=== PATIENT | female | born 1950 | race Caucasian/White ===

== ENCOUNTER → 2017-03-29 | Outpatient (CLI) | payer MEDICARE, OTHER ==
[~2017-03-29] MED LIST: ASPIRIN81 M1 PO; CELEXA20 MG PO; CIPRO250 MG PO; DITROPAN XL5 MG PO; DYAZIDE 25 MG-31 CAP PO; ETODOLAC200 MG PO; HYDR25T PO; HYDROCODONE BIT1 T11 PO; INDOMETHACIN50 MG PO; LEXAPRO20 MG PO; LIPITOR20 MG PO; LODINE XL 400M400 MG PO; MULTIVITAMIN1 TA1 PO; NAPROSYN500 MG PO; NEXIUM40 MG PO; NORCO 5-325 TA1 EACH PO; NORVASC10 MG PO; PROTONIX40 MG PO; TRAZODONE100 MG PO; TYLENOL W/CODEI1 TA4 PO; TYLENOL WITH CO1 TA1 PO
== END ==
LOC: ORTHO 10:35
DX: M17.11 Unilateral primary osteoarthritis, right knee (principal); M25.761 Osteophyte, right knee; M21.161 Varus deformity, not elsewhere classified, right knee

== ENCOUNTER → 2017-06-24 | Outpatient (CLI) | payer MEDICARE, OTHER | END | disposition home or self-care (01) | LOC: CARD 14:43 | DX: R60.0 Localized edema (principal) ==

== ENCOUNTER 2017-07-20 11:56 | Inpatient (IN) | payer MEDICARE, OTHER ==
[~2017-07-20] VITALS: Ht 165.1 cm; Wt 103.4 kg
--- NOTE | ~2017-07-20 | PR ---
[place], [place] PROGRESS NOTE NAME: MARYLIN AMAYA UNIT #: [id number] ROOM: 506 DOCTOR: RAMIREZ MORALES MD BIRTHDATE: [birth year] DOS: 07/21/2017 REASON FOR VISIT: Chest pain, hypertension. SUBJECTIVE: The patient is feeling better. Denies any further chest pains, no shortness of breath. No PND, no orthopnea. REVIEW OF SYSTEMS: Review of the 8 systems negative except as mentioned above. PHYSICAL EXAMINATION: VITAL SIGNS: Blood pressure 112/54, pulse 50, respiration rate is 18. Rhythm strips, patient in sinus rhythm. GENERAL: Alert, comfortable, in no acute distress. HEENT: Pupils are round and equal. No jaundice. NECK: Supple, no distended neck veins, no carotid bruit. CHEST: Symmetrical, nontender. LUNGS: Clear to auscultation bilaterally. HEART: Regular rhythm, no S3. ABDOMEN: Nontender. Bowel sounds normal. EXTREMITIES: Showed no edema. Distal pulses palpable. No cyanosis, no clubbing. SKIN: Warm and dry. Medications and labs reviewed. IMPRESSION: 1. Chest pain, myocardial infarction ruled out. 2. Hypertension, stable. 3. Sinus bradycardia, asymptomatic. 4. Non-morbid obesity. RECOMMENDATIONS: 1. Lexiscan stress test today due to her chest pains and carotid artery disease risk factors. 2. test is unremarkable, she can be discharged home today. 3. Risk factor modification for diet, exercise, and weight loss was discussed. [place], [place] PROGRESS NOTE NAME: MARYLIN AMAYA UNIT #: [id number] ROOM: 506 DOCTOR: RAMIREZ MORALES MD BIRTHDATE: [birth year] RAMIREZ MORALES MD CM:PNTRANS [id number] RAMIREZ MORALES MD 07/22/17 1006 interface
--- NOTE | ~2017-07-20 | CON ---
[place], [place] REPORT OF CONSULTATION NAME: MARYLIN AMAYA [facility] #: [id number] UNIT #: [id number] ROOM: 506 DOCTOR: RAMIREZ MORALES MD BIRTHDATE: [birth year] DOS: 07/20/2017 REASON FOR CONSULTATION: Chest pain. HISTORY OF PRESENT ILLNESS: The patient, a 67-year-old patient with history of hypertension, back pain, knee pain, non-morbid obesity, presents to Emergency Room for chest pain. She describes this pain as a dull pain in the midsternal area. No radiation. No associated nausea, diaphoresis, or shortness of breath. Apparently, she woke up with this pain and the pain is intermittent and lasts for a few seconds to several minutes and it returns. Again, the next day, the patient noted to have these intermittent chest pains and subsequently presented to the hospital and was admitted. She was also complaining of some lower extremity edema and recently was started on Bumex. She had a stress test over 2 years ago. The patient complaining of some mild exertional dyspnea, but no PND, no orthopnea. No nausea, vomiting, diarrhea. No fever and chills. No palpitations. No dizziness or syncope. No neurologic symptoms. The patient did have some chronic low back pain as well as bilateral knee pains. REVIEW OF SYSTEMS: Review of the 10 systems negative except as mentioned above. PAST MEDICAL HISTORY: 1. Hypertension. 2. Non-morbid obesity. 3. Edema. 4. Acid reflux. 5. Dyslipidemia. 6. History of spinal stenosis. 7. Arthritis of the both knees. PAST SURGICAL HISTORY: History of cholecystectomy, left knee surgery, tubal ligation. SOCIAL HISTORY: Does not smoke or drink, does not use illicit drugs. FAMILY HISTORY: Father at the age of 60s from heart disease. Mother in her 60s from lung cancer. Brother had a myocardial infarction at a younger age. ALLERGIES: The patient's allergies have been reviewed. MEDICATIONS: Have been reviewed. PHYSICAL EXAMINATION: VITAL SIGNS: Blood pressure 145/79, pulse 58, respiration rate is 20. Weight 103 kilos with BMI 37.9. REVIEW OF THE LABS AND IMAGING STUDIES: Her labs and imaging studies reviewed. Chest x-ray showed cardiomegaly with normal cardiac enzymes and creatinine 0.9. IMPRESSION: [place], [place] REPORT OF CONSULTATION NAME: MARYLIN AMAYA UNIT #: [id number] ROOM: 506 DOCTOR: ANDREW CARD,RAMIREZ BIRTHDATE: [birth year] 1. Chest pain, appears to be atypical, myocardial infarction ruled out. 2. Mild shortness of breath. 3. Mild lower extremity edema. 4. Non-morbid obesity. 5. Chronic low back pain and knee pains. 6. Mild mitral regurgitation by echo. 7. Hypertension. RECOMMENDATIONS: 1. Her echo from June 2017 reviewed with normal LV function. 2. EKG showed normal sinus rhythm with no acute ST-T changes. 3. Stress test from May 2015 reviewed. 4. Apparently, the patient had cardiac catheterization, showed no significant blockages. We will review the records from [facility]. 5. Continue current medications. 6. Lexiscan stress test tomorrow. 7. Risk factor modification for diet, exercise, and weight loss was discussed. 8. Further recommendation based on her symptoms and her tests. 9. The above treatment plan was discussed with the patient and her family member who is at bedside. RAMIREZ MORALES MD CM:CONSTR:REPORT OF CONSULTATION 0620 07/21/17 1052 interface
--- NOTE | ~2017-07-20 | ST ---
[place], [place] EXERCISE STRESS TEST REPORT NAME: MARYLIN AMAYA [facility] #: [id number] UNIT #: [id number] ROOM: 506 DOCTOR: ANDREW CARD,RAMIREZ BIRTHDATE: [birth year] DOS: 07/21/2017 REASON FOR TEST: Chest pain. PHYSICAL EXAMINATION NECK: Supple. LUNGS: Clear anteriorly. HEART: Regular rhythm. PROTOCOL: Lexiscan protocol. Maximum heart rate 80. Peak blood pressure 116/70. SYMPTOMS: The patient was chest pain free. ELECTROCARDIOGRAM: Resting EKG showed sinus rhythm. Stress EKG showed no ischemia, no arrhythmias. CONCLUSION: Clinically, the patient is chest pain free and EKG showed no ischemia. The patient received a total of 0.4 mg Lexiscan. RAMIREZ MORALES MD CM:STRESS:EXERCISE STRESS TEST REPORT [id number] RAMIREZ MORALES MD
[2017-07-20 12:02] VITALS: BP 160/74
[2017-07-20] MEDS ORDERED: PROTONIX40 MG PO (12:13)
[2017-07-20] MEDS ORDERED: VISTARIL25 MG PO (12:14)
[2017-07-20] MEDS ORDERED: TRIAMTERENE & H1 CA1 PO ×2 (12:14→15:02)
[2017-07-20] MEDS ORDERED: BUMETANIDE0.5 MG PO (12:15)
[2017-07-20] MEDS ORDERED: POTASSIUM99 M5 PO (12:16)
[2017-07-20 12:33] LABS: BASO % 0.5 % (0.0-1.0); EOS # 0.1 10*3/uL (0.0-0.4); EOS % 1.8 % (1.0-4.0); HEMATOCRIT 40.9 % (37.0-47.0); HEMOGLOBIN 13.1 g/dl (12.0-16.0); LYMPH # 1.3 10*3/uL (1.3-4.4); LYMPH % 19.5 % (27.0-41.0); MEAN CELL VOLUME 90.1 fl (81.0-99.0); MEAN CORPUSCULAR HGB 28.9 pg (27.0-31.0); MEAN PLATELET VOLUME 10.4 fl (9.6-12.3); MONO # 0.5 10*3/uL (0.1-1.0); MONO % 7.8 % (3.0-9.0); NEUT # 4.6 10*3/uL (2.3-7.9); NEUT % 70.1 % (47.0-73.0); PLATELET COUNT AUTOMATED 226 10*3/uL (130-400); RED BLOOD COUNT 4.54 10*6/uL (4.10-5.10); WHITE BLOOD COUNT 6.6 10*3/uL (4.8-10.8)
[2017-07-20 12:50] LABS: ALBUMIN 3.4 gm/dl (3.1-4.5); ALKALINE PHOSPHATASE 83 U/L (45-117); BUN 12 mg/dl (7-24); CHLORIDE 106 mmol/L (98-107); CREATININE 0.91 mg/dL (0.55-1.02); POTASSIUM 3.5 mmol/L (3.5-5.1); SGOT/AST 19 IU/L (3-35); SGPT/ALT 17 U/L (12-78); SODIUM 141 mmol/L (136-145); TOTAL PROTEIN 7.3 gm/dL (6.4-8.2)
[2017-07-20 12:51] LABS: TROPONIN I < 0.015 ng/ml (<0.045)
[2017-07-20 14:37] VITALS: BP 145/79
[2017-07-20] MEDS ORDERED: BUMETANIDE2 MG PO (15:00)
[2017-07-20 16:00] VITALS: BP 132/57
[2017-07-20 20:00] VITALS: BP 107/82
[2017-07-21 05:52] LABS: BASO % 0.3 % (0.0-1.0); EOS # 0.2 10*3/uL (0.0-0.4); EOS % 4.1 % (1.0-4.0); HEMATOCRIT 38.6 % (37.0-47.0); HEMOGLOBIN 12.5 g/dl (12.0-16.0); LYMPH # 2.2 10*3/uL (1.3-4.4); MEAN CELL VOLUME 89.4 fl (81.0-99.0); MEAN CORPUSCULAR HGB 28.9 pg (27.0-31.0); MEAN CORPUSCULAR HGB CONC 32.4 g/dl (33.0-37.0); MEAN PLATELET VOLUME 10.7 fl (9.6-12.3); MONO # 0.6 10*3/uL (0.1-1.0); MONO % 10.5 % (3.0-9.0); NEUT # 2.8 10*3/uL (2.3-7.9); NEUT % 47.9 % (47.0-73.0); PLATELET COUNT AUTOMATED 205 10*3/uL (130-400); RED BLOOD COUNT 4.32 10*6/uL (4.10-5.10); RED CELL DISTRI WIDTH 13.2 % (0-14.5); WHITE BLOOD COUNT 5.8 10*3/uL (4.8-10.8)
[2017-07-21 06:18] LABS: BUN 15 mg/dl (7-24); CHLORIDE 102 mmol/L (98-107); CHOLESTEROL 146 mg/dL (<200); CREATININE 0.91 mg/dL (0.55-1.02); PHOSPHOROUS 3.2 mg/dL (2.5-4.9); POTASSIUM 3.1 mmol/L (3.5-5.1); SODIUM 140 mmol/L (136-145); TRIGLYCERIDES 125 mg/dl (<150); VLDL CHOLESTEROL 25 mg/dL (6-40)
[2017-07-21 06:36] LABS: HDL CHOLESTEROL 46 mg/dl (40-60); LDL CHOLESTEROL 75 mg/dL (9-159)
[2017-07-21 08:00] VITALS: BP 126/62
[2017-07-21 08:48] LABS: VITAMIN D, 25-HYDROXY 37.5 ng/mL (30-100)
[2017-07-21] MEDS ORDERED: KLOR-CON 1010 ME1 PO (09:46)
[2017-07-21] MEDS ORDERED: BUMETANIDE1 MG PO (09:46)
[2017-07-21] MEDS ORDERED: TRAZODONE150 MG PO (09:53)
[2017-07-21] MEDS ORDERED: VITAMIN D31000 UNI1 PO (10:28)
[2017-07-21 16:00] VITALS: BP 114/63
== END 2017-07-21 17:33 | disposition home or self-care (01) | DRG 313 ==
LOC: ED 11:56 → 5E 13:37 → EDHOLD 13:37 → 5E 13:47
PROVIDERS: Physician Assistant; Student in an Organized Health Care Education/Training Program
PROC: 3E073KZ Introduction of Other Diagnostic Substance into Coronary Artery, Percutaneous Approach (ICD-10-PCS; principal; 2017-07-21)
PROC: 4A02XM4 Measurement of Cardiac Total Activity, External Approach (ICD-10-PCS; principal; 2017-07-21)
DX: R07.89 Other chest pain (principal); E66.01 Morbid (severe) obesity due to excess calories; I11.9 Hypertensive heart disease without heart failure; K21.9 Gastro-esophageal reflux disease without esophagitis; N32.81 Overactive bladder; M54.9 Dorsalgia, unspecified; G89.29 Other chronic pain; E78.5 Hyperlipidemia, unspecified; D72.810 Lymphocytopenia; M48.00 Spinal stenosis, site unspecified; R73.9 Hyperglycemia, unspecified; R00.1 Bradycardia, unspecified; M17.0 Bilateral primary osteoarthritis of knee; I34.0 Nonrheumatic mitral (valve) insufficiency; Z79.82 Long term (current) use of aspirin; Z79.899 Other long term (current) drug therapy; Z90.49 Acquired absence of other specified parts of digestive tract; Z98.51 Tubal ligation status; Z82.49 Family history of ischemic heart disease and other diseases of the circulatory system; Z80.1 Family history of malignant neoplasm of trachea, bronchus and lung; Z82.3 Family history of stroke; Z68.36 Body mass index [BMI] 36.0-36.9, adult

== ENCOUNTER → 2017-09-03 | Day surgery (SDC) | payer MEDICARE, OTHER ==
[~2017-09-03] VITALS: Ht 162.5 cm; Wt 99.8 kg
[~2017-09-03] MED LIST changes: +BUMETANIDE0.5 MG PO; +BUMETANIDE1 MG PO; +BUMETANIDE2 MG PO; +KLOR-CON 1010 ME1 PO; +POTASSIUM99 M5 PO; +TRAZODONE150 MG PO; +TRIAMTERENE & H1 CA1 PO; +VISTARIL25 MG PO; +VITAMIN D31000 UNI1 PO
--- NOTE | ~2017-09-03 | O ---
[place], [place] OPERATIVE NOTE NAME: MARYLIN AMAYA UNIT #: [id number] ROOM: DOCTOR: DORITA MAHMOOD MD BIRTHDATE: [birth year] DOS: 09/03/2017 GASTROENDOSCOPIC REPORT INDICATIONS: This is a 67-year-old patient who presented for colonic screening. Meanwhile, chronic use of PPI for years, on Protonix. ALLERGIES: No known medication. FAMILY HISTORY: Noncontributory. PAST SURGICAL HISTORY: Cholecystectomy and left knee. PAST MEDICAL HISTORY: Incontinence, obesity, hyperlipidemia, and anxiety. SOCIAL HISTORY: Nonsmoker, nonalcohol consumer. PROCEDURE: Today's procedure part of investigation is panendoscopy and colonoscopy. PREMEDICATION: Propofol. SCOPE: Olympus forward-viewing gastroscope Q10 video. REPORT: After putting the patient in left lateral position and application of lubricant to the scope, the scope was introduced. Thereafter, under direct visualization, advanced through the length of esophagus without difficulty. Distal esophagitis was noticed. Gastric pouch was entered. Gastritis seen. Antral biopsy obtained. Duodenal bulb, second and third part within normal limits. Scope was gradually withdrawn after antral biopsy. The patient extubated, and tolerated the procedure well. IMPRESSION: Distal esophagitis, gastritis. PLAN AND DISCUSSION: I am going to proceed with colonoscopy. GASTROENDOSCOPIC REPORT. INDICATIONS: The patient has presented for colonic screening. PROCEDURE: Today's procedure part of investigation is colonoscopy. PREMEDICATION: Propofol. SCOPE: Olympus forward-viewing colonoscope 10L video. REPORT: After putting the patient in left lateral position and application of lubricant to the scope, the scope was introduced. Thereafter, under direct visualization, I advanced through the length of colon with some difficulty. [place], [place] OPERATIVE NOTE NAME: MARYLIN AMAYA UNIT #: [id number] ROOM: DOCTOR: DORITA MAHMOOD MD BIRTHDATE: [birth year] Difficulty being semi-liquid stool flowing at the transverse colon and ascending colon, large volume. Detailed visualization of the ascending colon becomes impractical due to retained stool; however, in the left colon, diverticulosis was noticed. Air was suctioned out. The patient was extubated, and tolerated the procedure well. IMPRESSION: Diverticulosis and retained liquid stool in the right colon. PLAN AND DISCUSSION: Since this is a colonic screening, I am going to recommend her to have a repeat colonoscopy. If she does not, I agree. Then, I would recommend re-colonoscopy in a year to be definitely performed. Thank you again for your kind referral. DORITA MAHMOOD MD CM:OPRECORD:OPERATIVE NOTE [id number] DORITA MAHMOOD MD 09/07/17 1440 interface
[2017-09-03 11:51] VITALS: BP 98/61
[2017-09-03 12:24] VITALS: BP 91/46
[2017-09-03 12:40] VITALS: BP 103/44
[2017-09-03 12:54] VITALS: BP 104/54
== END | disposition home or self-care (01) ==
LOC: SDC 08-30 11:00
DX: Z12.11 Encounter for screening for malignant neoplasm of colon (principal); K29.50 Unspecified chronic gastritis without bleeding; K20.8 Other esophagitis; K57.30 Diverticulosis of large intestine without perforation or abscess without bleeding; K21.9 Gastro-esophageal reflux disease without esophagitis; K56.41 Fecal impaction; E78.5 Hyperlipidemia, unspecified; M19.90 Unspecified osteoarthritis, unspecified site; F41.9 Anxiety disorder, unspecified; E66.09 Other obesity due to excess calories; Z90.49 Acquired absence of other specified parts of digestive tract; Z98.890 Other specified postprocedural states; Z96.652 Presence of left artificial knee joint; Z79.899 Other long term (current) drug therapy; Z68.37 Body mass index [BMI] 37.0-37.9, adult
CPT/HCPCS: 00813; 43239; G0121

== ENCOUNTER 2017-09-28 13:10 | Emergency (ER) | payer MEDICARE, OTHER ==
[~2017-09-28] VITALS: Ht 165.1 cm; Wt 99.8 kg
[2017-09-28 13:11] VITALS: BP 126/62
== END 2017-09-28 15:45 | disposition home or self-care (01) ==
LOC: ED 13:10
DX: G89.29 Other chronic pain (principal); I10 Essential (primary) hypertension; K21.9 Gastro-esophageal reflux disease without esophagitis; M19.90 Unspecified osteoarthritis, unspecified site; E78.5 Hyperlipidemia, unspecified; E66.01 Morbid (severe) obesity due to excess calories; M48.00 Spinal stenosis, site unspecified; Z90.49 Acquired absence of other specified parts of digestive tract; Z98.51 Tubal ligation status; Z98.890 Other specified postprocedural states; Z79.899 Other long term (current) drug therapy; Z79.82 Long term (current) use of aspirin

== ENCOUNTER → 2017-11-26 | Outpatient (CLI) | payer MEDICARE, OTHER | END | disposition home or self-care (01) | LOC: CT 09:45 | DX: M17.11 Unilateral primary osteoarthritis, right knee (principal) ==

== ENCOUNTER → 2018-01-10 | Outpatient (CLI) | payer MEDICARE, OTHER ==
--- NOTE | ~2018-01-10 | EKG ---
[place], [place] ELECTROCARDIOGRAM REPORT NAME: GABRIELLE AMAYA UNIT #: [id number] ROOM: DOCTOR: ANGELI DRAFT REPORT BIRTHDATE: [birth year] [facility] Test Date: 2018-01-10 Test Time: 09:35:53 Pat Name: GABRIELLE AMAYA Department: Room: Gender: F [employer] Officer: Gabrielle Castillo : 1950 Requested By: ARIES RIVERO Order Number: [id number] Reading MD: José Miguel Multani MD Measurements Intervals [place] Rate: 52 P: 46 AL: 139 QRS: 0 QRSD: 103 T: 8 QT: 441 QTc: 411 Interpretive Statements Sinus rhythm Low voltage, precordial leads Electronically Signed On 01-12-2018 11:56:34 PDT by José Miguel Multani MD CM:EKGRPT:ELECTROCARDIOGRAM REPORT [id number] ARIES CARROLL DRAFT REPORT ARIES RIVERO DO
[2018-01-10 10:02] LABS: BILIRUBIN 1+ (NEGATIVE); BLOOD 1+ (NEGATIVE); CLARITY CLOUDY (CLEAR); COLOR YELLOW (YELLOW); GLUCOSE NEGATIVE (NEGATIVE); KETONE TRACE (NEGATIVE); LEUKO ESTERASE TRACE (NEGATIVE); NITRITE NEGATIVE (NEGATIVE); PH 5.5 (5.0-9.0); SPECIFIC GRAVITY >= 1.030 (1.005-1.030)
[2018-01-10 10:10] LABS: BASO % 0.5 % (0.0-1.0); EOS # 0.2 10*3/uL (0.0-0.4); EOS % 2.9 % (1.0-4.0); HEMATOCRIT 40.5 % (37.0-47.0); LYMPH # 1.1 10*3/uL (1.3-4.4); LYMPH % 19.6 % (27.0-41.0); MEAN CELL VOLUME 90.6 fl (81.0-99.0); MEAN CORPUSCULAR HGB 29.1 pg (27.0-31.0); MEAN CORPUSCULAR HGB CONC 32.1 g/dl (33.0-37.0); MEAN PLATELET VOLUME 10.3 fl (9.6-12.3); MONO # 0.4 10*3/uL (0.1-1.0); MONO % 7.4 % (3.0-9.0); NEUT # 3.9 10*3/uL (2.3-7.9); NEUT % 69.4 % (47.0-73.0); PLATELET COUNT AUTOMATED 229 10*3/uL (130-400); RED BLOOD COUNT 4.47 10*6/uL (4.10-5.10); RED CELL DISTRI WIDTH 13.7 % (0-14.5); WHITE BLOOD COUNT 5.6 10*3/uL (4.8-10.8)
[2018-01-10 10:43] LABS: ACT PARTIAL THROMBO TIME 24.9 SECONDS (20.8-31.5); INTERNATIONAL NORM RATIO 1.1 (2.0-3.5)
[2018-01-10 10:46] LABS: ALBUMIN 3.6 gm/dl (3.1-4.5); ALKALINE PHOSPHATASE 78 U/L (45-117); BUN 18 mg/dl (7-24); CHLORIDE 104 mmol/L (98-107); CREATININE 0.93 mg/dL (0.55-1.02); POTASSIUM 4.3 mmol/L (3.5-5.1); SGOT/AST 16 IU/L (3-35); SGPT/ALT 17 U/L (12-78); SODIUM 140 mmol/L (136-145); TOTAL PROTEIN 7.3 gm/dL (6.4-8.2)
[2018-01-10 11:43] LABS: BACTERIA 1+; MUCOUS 1+; WBC 31-40 wbc/hpf (0-5)
== END | disposition home or self-care (01) ==
LOC: LAB 09:22
PROVIDERS: Orthopaedic Surgery
DX: Z01.818 Encounter for other preprocedural examination (principal); R91.8 Other nonspecific abnormal finding of lung field; M19.90 Unspecified osteoarthritis, unspecified site; M79.609 Pain in unspecified limb; M79.89 Other specified soft tissue disorders; Z79.899 Other long term (current) drug therapy

== ENCOUNTER → 2018-01-21 | Outpatient (CLI) | payer MEDICARE, OTHER ==
[2018-01-21 10:05] LABS: BILIRUBIN NEGATIVE (NEGATIVE); BLOOD TRACE-INTACT (NEGATIVE); CLARITY CLOUDY (CLEAR); COLOR YELLOW (YELLOW); GLUCOSE NEGATIVE (NEGATIVE); KETONE NEGATIVE (NEGATIVE); LEUKO ESTERASE NEGATIVE (NEGATIVE); NITRITE NEGATIVE (NEGATIVE); SPECIFIC GRAVITY >= 1.030 (1.005-1.030); UROBILINOGEN 0.2 E.U./dl (0.2-1.0)
[2018-01-21 12:43] LABS: BACTERIA 1+; EPITHELIAL CELLS 15-20; MUCOUS 1+; URIC ACID CRYSTALS 1+
== END | disposition home or self-care (01) ==
LOC: LAB 09:35
PROVIDERS: Orthopaedic Surgery
DX: N39.0 Urinary tract infection, site not specified (principal)

== ENCOUNTER → 2019-01-06 | Day surgery (SDC) | payer MEDICARE, OTHER ==
[~2019-01-06] VITALS: Ht 165.1 cm; Wt 95.3 kg
[~2019-01-06] MED LIST changes: +IBU800 M1 PO; +PROPRANOLOL HCL60 MG PO
--- NOTE | ~2019-01-06 | O ---
[place], [place] OPERATIVE NOTE NAME: MARYLIN AMAYA UNIT #: [id number] ROOM: DOCTOR: DORITA MAHMOOD MD BIRTHDATE: [birth year] DOS: 01/06/2019 GASTROENDOSCOPIC REPORT INDICATION: This is 68-year-old patient who has presented with guaiac positivity on ibuprofen and change in bowel habit, undergoing investigation. ALLERGIES: BACTRIM. FAMILY HISTORY: Noncontributory. PAST SURGICAL HISTORY: Cardiac and bilateral knee prosthesis. PAST MEDICAL HISTORY: Hyperlipidemia, anxiety and depression. PROCEDURE #1: PROCEDURE: Today's procedure part of investigation is panendoscopy plus biopsies and colonoscopy. PREMEDICATION: Propofol. SCOPE: Olympus forward-viewing gastroscope Q10 video. DESCRIPTION OF PROCEDURE: After putting the patient in left lateral position and application of lubricant to the scope, scope was introduced. Thereafter, under direct visualization, advanced through the length of esophagus without difficulty. Distal esophagitis was identified. Gastric pouch was entered. Multigastric erosions, particularly at antral ____ was noticed. Antral biopsy obtained. Photographic series obtained. Duodenal bulb, seconds and third parts within normal limits. The patient extubated, tolerated the procedure well. IMPRESSION: Multigastric erosions, distal esophagitis, status post antral biopsy and photographic series. Etiology of gastric erosions are ibuprofen and multi other medication she is taking. FINAL DIAGNOSES: Multiple gastric erosions and distal esophagitis. PLAN AND DISCUSSION: She is going to remain on Protonix. We are going to remove the ibuprofen at the present time. Intake of ibuprofen has to be p.r.n. when she feels absolute necessity along with the Gaviscon Extra Strength 1 tablet p.r.n. and clinical reassessment. We are going to proceed with colonoscopic evaluation. Thank you very much indeed for your kind referral. PROCEDURE #2: INDICATION: The patient has presented with a chief complaint of change in bowel [place], [place] OPERATIVE NOTE NAME: MARYLIN AMAYA UNIT #: [id number] ROOM: DOCTOR: DORITA MAHMOOD MD BIRTHDATE: [birth year] habit, undergoing investigation. PROCEDURE: Today's procedure part of investigation is colonoscopy. PREMEDICATION: Propofol. SCOPE: Olympus forward-viewing colonoscope 10L video. DESCRIPTION OF PROCEDURE: After putting the patient in left lateral position and application of lubricant to the scope, scope was introduced. Thereafter, under direct visualization, advanced through the length of colon without difficulty. [id number]-ji-[id number] diverticulosis was noticed. Base of the cecum explored, appendiceal orifice identified, ileocecal valve was defined. Scope was gradually withdrawn from ascending, transverse, descending colon. Most of the diverticula in the descending colon. Air was suctioned out. The patient was extubated, tolerated the procedure well. IMPRESSION: Wgpbqagr-[id number] diverticulosis, particularly of the left colon. PLAN AND DISCUSSION: High fiber diet. ACTIVITY: Ad geovanni. FOLLOWUP: Routinely with you in office, p.r.n. visit. Thank you very much indeed for your kind referral. DORITA MAHMOOD MD CM:OPRECORD:OPERATIVE NOTE [id number] DORITA MAHMOOD MD 01/06/19 1538 interface
[2019-01-06 10:44] VITALS: BP 114/55
[2019-01-06 12:16] VITALS: BP 115/47
[2019-01-06 12:24] VITALS: BP 109/59
[2019-01-06 12:44] VITALS: BP 130/67
== END | disposition home or self-care (01) ==
LOC: SDC 01-03 10:15
DX: K92.1 Melena (principal); K29.50 Unspecified chronic gastritis without bleeding; K57.30 Diverticulosis of large intestine without perforation or abscess without bleeding; F41.9 Anxiety disorder, unspecified; E78.5 Hyperlipidemia, unspecified; F32.9 Major depressive disorder, single episode, unspecified; K21.9 Gastro-esophageal reflux disease without esophagitis; E66.9 Obesity, unspecified; Z68.34 Body mass index [BMI] 34.0-34.9, adult; Z98.51 Tubal ligation status; Z90.49 Acquired absence of other specified parts of digestive tract; Z98.890 Other specified postprocedural states; Z79.899 Other long term (current) drug therapy; Z88.8 Allergy status to other drugs, medicaments and biological substances; Z80.8 Family history of malignant neoplasm of other organs or systems; Z82.49 Family history of ischemic heart disease and other diseases of the circulatory system

== ENCOUNTER 2019-04-01 15:39 | Emergency (ER) | payer OTHER, MEDICARE ==
[~2019-04-01] VITALS: Ht 165.1 cm; Wt 95.3 kg
[2019-04-01 15:44] VITALS: BP 156/56
== END 2019-04-01 18:49 | disposition home or self-care (01) ==
LOC: ED 15:39
DX: S80.02XA Contusion of left knee, initial encounter (principal); S80.01XA Contusion of right knee, initial encounter; I10 Essential (primary) hypertension; K21.9 Gastro-esophageal reflux disease without esophagitis; E66.01 Morbid (severe) obesity due to excess calories; M19.90 Unspecified osteoarthritis, unspecified site; E78.5 Hyperlipidemia, unspecified; Z88.2 Allergy status to sulfonamides; Z79.899 Other long term (current) drug therapy; V89.2XXA Person injured in unspecified motor-vehicle accident, traffic, initial encounter; Y93.89 Activity, other specified; Y92.89 Other specified places as the place of occurrence of the external cause; Y99.8 Other external cause status

== ENCOUNTER → 2020-01-01 | Outpatient (CLI) | payer OTHER | END | disposition home or self-care (01) | LOC: RAD 10:25 | PROVIDERS: ATTEND Pain Medicine Interventional Pain Medicine | DX: S33.39XA Dislocation of other parts of lumbar spine and pelvis, initial encounter (principal); X58.XXXA Exposure to other specified factors, initial encounter; M47.816 Spondylosis without myelopathy or radiculopathy, lumbar region; I87.8 Other specified disorders of veins; Y93.89 Activity, other specified; Y92.89 Other specified places as the place of occurrence of the external cause; Y99.8 Other external cause status ==

== ENCOUNTER → 2020-01-24 | Outpatient (CLI) | payer OTHER | END | disposition home or self-care (01) | LOC: MRI 13:00 | PROVIDERS: ATTEND Pain Medicine Interventional Pain Medicine | DX: M51.27 Other intervertebral disc displacement, lumbosacral region (principal); M62.81 Muscle weakness (generalized); M48.061 Spinal stenosis, lumbar region without neurogenic claudication; M41.86 Other forms of scoliosis, lumbar region; M43.16 Spondylolisthesis, lumbar region ==

== ENCOUNTER → 2020-05-29 | Outpatient (CLI) | payer OTHER, MEDICAID | END | disposition home or self-care (01) | LOC: MAMMO 05-27 10:30 | PROVIDERS: ATTEND Preventive Medicine Occupational Medicine | DX: Z12.31 Encounter for screening mammogram for malignant neoplasm of breast (principal) ==

== ENCOUNTER 2020-08-02 10:58 | Emergency (ER) | payer OTHER ==
[~2020-08-02] VITALS: Ht 165.1 cm; Wt 107.0 kg
[2020-08-02 11:33] LABS: BASO % 0.3 % (0.0-1.0); EOS # 0.1 10*3/uL (0.0-0.4); EOS % 0.8 % (1.0-4.0); HEMATOCRIT 41.9 % (37.0-47.0); LYMPH # 1.2 10*3/uL (1.3-4.4); MEAN CELL VOLUME 89.9 fl (81.0-99.0); MEAN CORPUSCULAR HGB CONC 32.2 g/dl (33.0-37.0); MEAN PLATELET VOLUME 9.8 fl (9.6-12.3); MONO # 0.5 10*3/uL (0.1-1.0); MONO % 7.9 % (3.0-9.0); NEUT # 4.4 10*3/uL (2.3-7.9); NEUT % 71.7 % (47.0-73.0); PLATELET COUNT AUTOMATED 240 10*3/uL (130-400); RED BLOOD COUNT 4.66 10*6/uL (4.10-5.10); RED CELL DISTRI WIDTH 13.6 % (0-14.5); WHITE BLOOD COUNT 6.1 10*3/uL (4.8-10.8)
[2020-08-02 11:47] LABS: ALBUMIN 3.4 gm/dl (3.1-4.5); ALKALINE PHOSPHATASE 73 U/L (45-117); BUN 10 mg/dl (7-24); CHLORIDE 105 mmol/L (98-107); CREATININE 0.83 mg/dL (0.55-1.02); LIPASE 138 U/L (73-393); POTASSIUM 3.8 mmol/L (3.5-5.1); SGOT/AST 15 IU/L (3-35); SGPT/ALT 17 U/L (12-78); SODIUM 135 mmol/L (136-145); TOTAL PROTEIN 6.8 gm/dL (6.4-8.2)
[2020-08-02 12:53] LABS: BILIRUBIN Negative (Negative); BLOOD 1+ (Negative); CLARITY Clear (Clear); COLOR Yellow (Yellow); GLUCOSE Negative (Negative); KETONE Negative (Negative); LEUKO ESTERASE Negative (Negative); NITRITE Negative (Negative); UROBILINOGEN 0.2 E.U./dl (0.0-1.0)
[2020-08-02 13:00] LABS: BACTERIA TRACE; WBC 0-2 wbc/hpf (0-5); YEAST 1+
[2020-08-02 15:09] VITALS: BP 124/53
== END 2020-08-02 16:24 | disposition home or self-care (01) ==
LOC: ED 10:58
PROVIDERS: Physician Assistant
DX: R19.7 Diarrhea, unspecified (principal); Z88.8 Allergy status to other drugs, medicaments and biological substances; Z88.2 Allergy status to sulfonamides; Z79.899 Other long term (current) drug therapy; Z98.890 Other specified postprocedural states; Z90.49 Acquired absence of other specified parts of digestive tract; Z95.818 Presence of other cardiac implants and grafts; Z98.51 Tubal ligation status; Z96.652 Presence of left artificial knee joint

== ENCOUNTER → 2020-08-22 | Outpatient (CLI) | payer OTHER | END | disposition home or self-care (01) | LOC: RAD 12:06 | PROVIDERS: ATTEND Preventive Medicine Occupational Medicine | DX: M51.37 Other intervertebral disc degeneration, lumbosacral region (principal) ==

== ENCOUNTER → 2020-09-23 | Outpatient (CLI) | payer OTHER | END | disposition home or self-care (01) | LOC: MRI 12:51 | PROVIDERS: ATTEND Student in an Organized Health Care Education/Training Program | DX: M43.16 Spondylolisthesis, lumbar region (principal); M48.061 Spinal stenosis, lumbar region without neurogenic claudication; M50.31 Other cervical disc degeneration, high cervical region; M51.37 Other intervertebral disc degeneration, lumbosacral region; M48.02 Spinal stenosis, cervical region; M48.07 Spinal stenosis, lumbosacral region; M25.78 Osteophyte, vertebrae; M89.38 Hypertrophy of bone, other site ==

== ENCOUNTER → 2021-01-23 | Outpatient (CLI) | payer OTHER | END | disposition home or self-care (01) | LOC: RAD 14:59 | PROVIDERS: ATTEND Preventive Medicine Occupational Medicine | DX: S22.000A Wedge compression fracture of unspecified thoracic vertebra, initial encounter for closed fracture (principal); M25.78 Osteophyte, vertebrae; X58.XXXA Exposure to other specified factors, initial encounter; Y93.89 Activity, other specified; Y92.89 Other specified places as the place of occurrence of the external cause; Y99.8 Other external cause status ==

== ENCOUNTER → 2021-04-29 | Outpatient (CLI) | payer OTHER | END | disposition home or self-care (01) | LOC: US 04-25 10:30 | PROVIDERS: ATTEND Preventive Medicine Occupational Medicine | DX: L03.115 Cellulitis of right lower limb (principal); L04.9 Acute lymphadenitis, unspecified; R60.0 Localized edema ==

== ENCOUNTER → 2021-06-12 | Outpatient (CLI) | payer OTHER | END | disposition home or self-care (01) | LOC: CARD 01:05 | PROVIDERS: ATTEND Preventive Medicine Occupational Medicine | DX: R60.0 Localized edema (principal) ==

== ENCOUNTER → 2022-02-23 | Outpatient (CLI) | payer OTHER | END | disposition home or self-care (01) | LOC: MAMMO 01-21 08:30 | PROVIDERS: ATTEND Nurse Practitioner Primary Care | DX: Z12.31 Encounter for screening mammogram for malignant neoplasm of breast (principal) ==

== ENCOUNTER → 2022-05-29 | Outpatient (CLI) | payer OTHER | END | disposition home or self-care (01) | LOC: US 05-11 00:49 | PROVIDERS: ATTEND Nurse Practitioner Primary Care | DX: I73.9 Peripheral vascular disease, unspecified (principal); R60.0 Localized edema; R23.8 Other skin changes; L03.119 Cellulitis of unspecified part of limb ==

== ENCOUNTER → 2022-07-15 | Outpatient (CLI) | payer OTHER ==
[2022-07-15 10:50] LABS: BASO % 0.1 % (0.0-1.0); HEMATOCRIT 43.1 % (37.0-47.0); LYMPH # 1.4 10*3/uL (1.3-4.4); LYMPH % 16.3 % (27.0-41.0); MEAN CELL VOLUME 88.9 fl (81.0-99.0); MEAN CORPUSCULAR HGB 29.3 pg (27.0-31.0); MEAN CORPUSCULAR HGB CONC 32.9 g/dl (33.0-37.0); MEAN PLATELET VOLUME 10.4 fl (9.6-12.3); MONO # 0.7 10*3/uL (0.1-1.0); MONO % 7.9 % (3.0-9.0); NEUT # 6.3 10*3/uL (2.3-7.9); NEUT % 75.5 % (47.0-73.0); PLATELET COUNT AUTOMATED 230 10*3/uL (130-400); RED BLOOD COUNT 4.85 10*6/uL (4.10-5.10); WHITE BLOOD COUNT 8.3 10*3/uL (4.8-10.8)
[2022-07-15 11:56] LABS: ALKALINE PHOSPHATASE 97 U/L (46-116); BUN 18 mg/dl (9-23); CHLORIDE 105 mmol/L (98-107); FREE T4 1.12 ng/dl (0.89-1.76); POTASSIUM 3.3 mmol/L (3.4-5.1); SGPT/ALT 13 U/L (10-49); THYROID STIM HORMONE (HS) 1.388 uIU/ml (0.550-4.780)
== END | disposition home or self-care (01) ==
LOC: LAB 10:15
PROVIDERS: ATTEND Nurse Practitioner Primary Care
DX: M54.9 Dorsalgia, unspecified (principal); R41.3 Other amnesia; R31.9 Hematuria, unspecified

== ENCOUNTER → 2022-09-21 | Outpatient (CLI) | payer OTHER | END | disposition home or self-care (01) | LOC: RAD 15:32 | PROVIDERS: ATTEND Nurse Practitioner Family | DX: M19.032 Primary osteoarthritis, left wrist (principal); M19.012 Primary osteoarthritis, left shoulder ==